=== PATIENT | male | born 1990 | race Caucasian/White ===

== ENCOUNTER 2017-04-08 02:02 | Emergency (ER) | payer BC ==
[~2017-04-08] VITALS: Ht 195.6 cm; Wt 100.0 kg
[2017-04-08] MEDS ORDERED: NORCO 325 MG-51 TA1 PO (05:52)
[2017-04-08 06:02] VITALS: BP 160/80
== END 2017-04-08 06:02 | disposition home or self-care (01) ==
LOC: ED 02:02
DX: N23 Unspecified renal colic (principal); Z90.79 Acquired absence of other genital organ(s); R11.0 Nausea; Z85.47 Personal history of malignant neoplasm of testis
CPT/HCPCS: J1885; J2405; J7030